=== PATIENT | female | born 1945 | race Caucasian/White ===

== ENCOUNTER 2016-06-29 12:37 | Outpatient (CLI) | payer BC ==
[~2016-06-29] VITALS: Ht 167.6 cm; Wt 49.3 kg
[~2016-06-29 12:37] MED LIST: CALCIUM 600/VIT1 CAP PO; CALTRATE; CARNITOR330 MG PO; CENTRUM SILVER1 CTB PO; CROMOLYN IH; FISH OIL; FISH OIL 1000MG1 CAP PO; HYZAAR 25 MG-101 TAB PO; LEVOTHYROXINE0.1 MG PO; LEVOXYL0.1 MG PO; MASON NATURAL1200 MG PO; MULTI VITAMINS1 TAB PO; MVI; NORCO 325 MG-51 TAB PO; NORVASC5 MG PO; NOVALOG; NOVLOG; RT ADVAIR 128 DISKUS IH; RT ADVAIR 228 DISKUS IH; SINGULAIR 110 MG/TAB PO; SINGULAIR10 MG PO; SSKI1 GM/ML PO; SUDAFED60 MG PO; TUDORZA IH; VERAPAMIL240 MG/TAB PO; VITAMIN D32000 I1 PO; VITAMIN K0.1 MG PO; XOLAIR IJ; XOPENEX HF0.045 MG/A IH; XYAL5 MG PO; XYZAL5 MG PO; ZYRTEC 10MG10 MG PO; ZYRTEC10 MG PO; [UNRECOGNIZED DRUG - OTHER]; [UNRECOGNIZED DRUG - OTHER]; [UNRECOGNIZED DRUG - OTHER]; vit D
[2016-06-29 12:58] VITALS: BP 131/65; PULSE 75; TEMP 97.1
[2016-06-29 13:20] VITALS: BP 132/57; PULSE 72
[2016-06-29 14:53] VITALS: BP 133/75; PULSE 80
== END 2016-06-29 13:25 | disposition home or self-care (01) ==
LOC: SDCO 12:37
DX: J90 Pleural effusion, not elsewhere classified (principal)

== ENCOUNTER → 2016-09-26 | Outpatient (RCR) | payer BC | END | disposition home or self-care (01) | LOC: WSPT → WSC 06-28 12:30 → WSPT 07-04 08:00 → WSC 08-10 12:30 → WSPT 08-12 07:30 | DX: S42.231D 3-part fracture of surgical neck of right humerus, subsequent encounter for fracture with routine healing (principal); X58.XXXD Exposure to other specified factors, subsequent encounter | CPT/HCPCS: G0283-GP; G8984-GP; G8985-GP ==

== ENCOUNTER 2016-12-14 07:00 | Outpatient (RCR) | payer BC | END 2016-12-15 13:05 | LOC: WSPT 07:00 | DX: Z47.89 Encounter for other orthopedic aftercare (principal); S42.291G Other displaced fracture of upper end of right humerus, subsequent encounter for fracture with delayed healing ==

== ENCOUNTER → 2017-01-05 | Outpatient (CLI) | payer BC | LOC: MC.RAD 11:22 | DX: Z12.31 Encounter for screening mammogram for malignant neoplasm of breast (principal); Z98.82 Breast implant status ==

== ENCOUNTER → 2018-03-08 | Outpatient (CLI) | payer BC | LOC: MC.RAD 11:20 | DX: Z12.31 Encounter for screening mammogram for malignant neoplasm of breast (principal); Z98.82 Breast implant status ==

== ENCOUNTER → 2020-02-04 | Outpatient (CLI) | payer BC | LOC: MC.RAD 10:12 | DX: Z12.31 Encounter for screening mammogram for malignant neoplasm of breast (principal) ==

== ENCOUNTER → 2021-02-08 | Outpatient (CLI) | payer BC | LOC: MC.RAD 11:15 | DX: Z12.31 Encounter for screening mammogram for malignant neoplasm of breast (principal); Z98.82 Breast implant status ==

== ENCOUNTER 2022-04-07 06:55 | Day surgery (SDC) | payer BC ==
[2022-04-07] VITALS (14 sets, daily range): BP systolic 85–124; BP diastolic 44–68; PULSE 51–69; TEMP 98.2
[~2022-04-07] VITALS: Ht 167.7 cm; Wt 50.4 kg
[~2022-04-07 06:55] MED LIST changes: +EPA FISH OIL1 SGL PO; -MASON NATURAL1200 MG PO; +MASON NATURAL2000 IU PO; -VITAMIN D32000 I1 PO
--- NOTE | 2022-04-07 08:00 | NUR ---
Pt reports she has insulin pump infusing at 0.3units per hr.Pt reports she does not want to shut it off.Reported to [employer],Hold[employer].Reported to Dr Abel.
[2022-04-07 08:02] LABS: HEMOGLOBIN 14.8 g/dl (12.5-16.0); MEAN CELL VOLUME 87 fl (80.0-100.0); MEAN CORPUSCULAR HEMOGLOBIN 30 pg (27-31); MEAN CORPUSCULAR HGB CONC 34 g/dl (33.0-37.0); MEAN PLATELET VOLUME 9.1 fl (7.4-10.4); PLATELET COUNT 228 K/mm3 (130-400); RED BLOOD COUNT 4.95 M/mm3 (4.10-5.30); REDCELL DISTRIBUTION WIDTH-CV 13.5 % (11.5-14.5)
[2022-04-07 08:21] LABS: CALCIUM 9.7 mg/dL (8.4-10.2); CREATININE, serum 0.87 mg/dL (0.57-1.11); POTASSIUM 4.3 mmol/L (3.5-4.5)
[2022-04-07 08:24] LABS: INR 0.9 (0.8-3.0); PROTHROMBIN TIME 10.8 SECONDS (9.7-12.8)
[2022-04-07 08:27] LABS: PARTIAL THROMBOPLASTIN TIME 27.1 SECONDS (26.0-37.0)
[2022-04-07] MEDS ORDERED: BENICAR40 MG PO (08:58)
[2022-04-07] MEDS ORDERED: VERELAN120 MG PO (09:01)
[2022-04-07] MEDS ORDERED: VERELAN240 MG PO (09:02)
[2022-04-07] MEDS ORDERED: CALCIUM CITRAT200 M2 PO (09:06)
[2022-04-07] MEDS ORDERED: MAGNESIUM CITR100 MG PO (09:08)
[2022-04-07] MEDS ORDERED: VALTREX 50500 MG/TAB PO (09:09)
[2022-04-07] MEDS ORDERED: AFREZZA IH (09:10)
[2022-04-07] MEDS ORDERED: FASENRA30 MG/1 ML SQ (09:12)
[2022-04-07] MEDS ORDERED: JARDIANCE10 PO (09:13)
[2022-04-07] MEDS ORDERED: VAGIFEM10 MCG VG (09:14)
--- NOTE | 2022-04-07 09:15 | NUR ---
Pt to procedure at this time.
--- NOTE | 2022-04-07 09:16 | NUR ---
SEE MERGE FOR VITAL SIGNS, ASSESSMENTS, INTERVENTIONS AND MEDICATIONS GIVEN.
[2022-04-07] MEDS ORDERED: GNC L-ARGININE500 MG PO (13:12)
--- NOTE | 2022-04-07 15:00 | NUR ---
Discharge instructions given to pt.Pt verbalizes understanding.Pt escorted out via wheelchair by this nurse.
== END 2022-04-07 15:16 ==
LOC: COL.CAR 06:55
PROVIDERS: Internal Medicine Cardiovascular Disease
DX: I20.0 Unstable angina (principal); R06.02 Shortness of breath; I10 Essential (primary) hypertension; D68.51 Activated protein C resistance; R01.1 Cardiac murmur, unspecified; I07.1 Rheumatic tricuspid insufficiency; Z87.891 Personal history of nicotine dependence; Z77.22 Contact with and (suspected) exposure to environmental tobacco smoke (acute) (chronic)
CPT/HCPCS: J1644; J2250; J3010; Q9967